=== PATIENT | female | born 1990 | race Caucasian/White ===

== ENCOUNTER → 2017-07-09 | Outpatient (CLI) | payer OTHER ==
[~2017-07-09] VITALS: Ht 157.5 cm; Wt 58.6 kg
[~2017-07-09] MED LIST: SPRINTEC 35 MCG1 TAB PO
[2017-07-09 15:48] VITALS: BP 142/94
== END ==
LOC: AMSURD 15:20
PROVIDERS: Physician Assistant
DX: R00.2 Palpitations (principal)

== ENCOUNTER → 2017-09-25 | Outpatient (CLI) | payer OTHER ==
[2017-07-09 15:48] VITALS: BP 142/94
== END ==
LOC: LAB 08:56
DX: J02.8 Acute pharyngitis due to other specified organisms (principal)

== ENCOUNTER → 2018-08-27 | Outpatient (CLI) | payer OTHER ==
[2017-07-09 15:48] VITALS: BP 142/94
[2018-08-27 15:20] LABS: BASO # 0.1 (0.02-0.10); EOS # 0.3 (0.04-0.40); EOS % 4.4 % (1.0-5.0); HEMATOCRIT 42.1 % (37.0-47.0); HEMOGLOBIN 14.1 g/dL (12.5-16.0); LYMPH# 1.5 (1.50-4.00); MEAN CELL VOLUME 87 fl (78-100); MEAN CORPUSCULAR HEMOGLOBIN 29 pg (27-31); MEAN CORPUSCULAR HGB CONC 34 g/dL (33-37); MEAN PLATELET VOLUME 10.3 fl (7.4-10.4); MONO # 0.6 (0.20-0.80); NEU # 3.3 (1.40-6.50); PLATELET COUNT 230 K/mm3 (130-400); RED BLOOD COUNT 4.85 M/mm3 (4.10-5.30); RED CELL DISTRIBUTION WIDTH 12.1 % (11.5-14.5); WHITE BLOOD COUNT 5.6 K/mm3 (4.8-10.8)
[2018-08-27 15:51] LABS: ALBUMIN 4.5 g/dL (3.5-5.0); CALCIUM 9.5 mg/dL (8.4-10.2); TOTAL BILIRUBIN 1.6 mg/dL (0.2-1.3)
== END ==
LOC: LAB 15:06
PROVIDERS: Physician Assistant
DX: K21.9 Gastro-esophageal reflux disease without esophagitis (principal); R10.9 Unspecified abdominal pain

== ENCOUNTER → 2018-08-31 | Outpatient (CLI) | payer OTHER ==
[2017-07-09 15:48] VITALS: BP 142/94
== END ==
LOC: RAD 09:08
DX: K83.8 Other specified diseases of biliary tract (principal); R10.11 Right upper quadrant pain

== ENCOUNTER 2024-09-10 07:09 | Emergency (ER) | payer OTHER ==
[~2024-09-10] VITALS: Ht 157.5 cm; Wt 48.6 kg
[2024-09-10] MEDS ORDERED: Promethazine 50 MG/ML 1 ML VIAL IM ONE (07:15)
[2024-09-10] MEDS ORDERED: ZOFRAN ODT4 MG PO (07:26)
[2024-09-10 07:43] VITALS: BP 114/83
[2024-09-13] MEDS ORDERED: GUAIFEN-CODEINE5 ML PO (17:14)
== END 2024-09-10 07:43 | disposition home or self-care (01) ==
LOC: ED 07:09
DX: J10.1 Influenza due to other identified influenza virus with other respiratory manifestations (principal)
CPT/HCPCS: J2550

== ENCOUNTER 2024-09-12 12:30 | Emergency (ER) | payer OTHER ==
[~2024-09-12] VITALS: Ht 154.9 cm; Wt 54.5 kg
[~2024-09-12 12:30] MED LIST changes: +ZOFRAN ODT4 MG PO
[2024-09-12] MEDS ORDERED: AZITHROMYCIN 250MGPK PO (13:32)
[2024-09-12] MEDS ORDERED: RT ALBUTEROL CC18 GM IH (13:32)
[2024-09-12] MEDS ORDERED: BENZONATATE200 MG PO (13:32)
[2024-09-12] MEDS ORDERED: GUAIFEN-CODEIN118 ML PO (13:32)
[2024-09-12 13:40] VITALS: BP 115/86
[2024-09-13] MEDS ORDERED: GUAIFEN-CODEINE5 ML PO (17:14)
== END 2024-09-12 13:40 | disposition home or self-care (01) ==
LOC: ED 12:30
DX: J18.9 Pneumonia, unspecified organism (principal)